=== PATIENT | male | born 1960 | race Caucasian/White ===

== ENCOUNTER 2018-02-19 08:49 | Emergency (ER) | payer MEDICARE, MEDICAID ==
[~2018-02-19] VITALS: Ht 167.6 cm; Wt 61.4 kg
[2018-02-19] MEDS ORDERED: METF850T2 PO (08:59)
[2018-02-19 09:03] LABS: GLUCOSE,POINT OF CARE 190 MG/DL (70-110)
[2018-02-19 09:35] VITALS: BP 142/79
== END 2018-02-19 10:07 | disposition home or self-care (01) ==
LOC: EMS 08:50
DX: N48.1 Balanitis (principal); R03.0 Elevated blood-pressure reading, without diagnosis of hypertension; L53.9 Erythematous condition, unspecified; E11.9 Type 2 diabetes mellitus without complications
CPT/HCPCS: 82962; 99283